=== PATIENT | male | born 1950 ===

== ENCOUNTER 2018-09-07 09:17 | Day surgery (SDC) | payer MEDICARE ==
[2018-09-06 11:52] VITALS: BMI 23.9
[2018-09-07] MEDS ORDERED: Propofol 10 mg/ml Inj (20 ML) ONE (12:31)
[2018-09-07] MEDS ORDERED: Lidocaine Hydrochloride 5 ML INJ ONE (12:44)
[2018-09-07 13:49] VITALS: TEMP 96.7
[2018-09-07 13:53] VITALS: O2SAT 100
[2018-09-07 13:54] VITALS: BP 146/74; PULSE 67; RESP 18
== END 2018-09-07 14:10 | disposition home or self-care (01) ==
LOC: C.ENDO 09:17
PROVIDERS: ATTEND Internal Medicine Gastroenterology
DX: K63.5 Polyp of colon (principal); Z12.11 Encounter for screening for malignant neoplasm of colon; K64.1 Second degree hemorrhoids; E78.5 Hyperlipidemia, unspecified; N40.0 Benign prostatic hyperplasia without lower urinary tract symptoms
CPT/HCPCS: 45380; 45385; 88305; J2704